=== PATIENT | female | born 1960 | race Caucasian/White ===

== ENCOUNTER 2020-03-18 13:22 | Inpatient (IN) | payer OTHER, SELFPAY ==
[2020-03-18] VITALS (7 sets, daily range): BP systolic 96–116; BP diastolic 50–65; PULSE 83–120; RESP 16–20; TEMP 36.5–37.6; O2SAT 94–97; BMI 36.6
--- NOTE | 2020-03-18 14:04 | ED.ABDPAIN ---
HPI - Abdominal Pain General Chief Complaint: Abdominal Pain <Samy Romeo MD - Last Filed: 03/18/20 14:14> Stated Complaint: DIARRHEA FEVER <Samy Romeo MD - Last Filed: 03/18/20 14:14> Time Seen by Provider: 03/18/20 13:56 <Samy Romeo MD - Last Filed: 03/18/20 14:14> Related Data Home Medications: Home Medications Medication Instructions Recorded Confirmed fexofenadine 180 mg PO DAILY 03/18/20 03/18/20 <Samy Romeo MD - Last Filed: 03/18/20 14:14> Allergies/Adverse Reactions: Allergies Allergy/AdvReac Type Severity Reaction Status Date / Time Penicillins [PENICILLINS] Allergy Unknown Rash Verified 03/18/20 15:07 <Samy Romeo MD - Last Filed: 03/18/20 14:14> Review of Systems Review of Systems Yes all other systems are reviewed and are negative <Samy Romeo MD - Last Filed: 03/18/20 14:14> Constitutional: Reports no additional constitutional complaints <Samy Romeo MD - Last Filed: 03/18/20 14:14> Eyes: Reports no additional eye complaints <Samy Romeo MD - Last Filed: 03/18/20 14:14> Reports system reviewed and no additional complaints, except as documented <Samy Romeo MD - Last Filed: 03/18/20 14:14> Cardiovascular: Reports no additional cardiovascular complaints <Samy Romeo MD - Last Filed: 03/18/20 14:14> Respiratory: Reports no additional respiratory complaints <Samy Romeo MD - Last Filed: 03/18/20 14:14> Gastrointestinal: Reports as per HPI, Reports abdominal pain ( intermittent cramps.), Denies melena, Denies bloating, Denies hematochezia and Reports nausea <Samy Romeo MD - Last Filed: 03/18/20 14:14> Genitourinary: Reports no additional female genitourinary complaints <Samy Romeo MD - Last Filed: 03/18/20 14:14> Musculoskeletal: Reports no additional musculoskeletal complaints <Samy Romeo MD - Last Filed: 03/18/20 14:14> Reports system reviewed and no additional complaints, except as documented and Reports Abnormal speech present <Samy Romeo MD - Last Filed: 03/18/20 14:14> Psychiatric: Reports no additional psychiatric complaints <Samy Romeo MD - Last Filed: 03/18/20 14:14> Allergic/Immunologic: Reports no additional allergic/immunologic complaints <Samy Romeo MD - Last Filed: 03/18/20 14:14> Physical Exam Vital Signs and I&O and Narrative: Vital Signs and I&O: Vital Signs Temp 99.6 F 03/18/20 18:50 Pulse 94 03/18/20 18:50 Resp 18 03/18/20 18:50 BP 116/51 L 03/18/20 18:50 Pulse Ox 97 03/18/20 16:50 Intake & Output 03/18/20 03/18/20 03/19/20 06:59 18:59 06:59 Intake Total 1000 / 3971.54 Balance 1000 / 3971.54 Weight 90.718 kg Intake: Intake, IV Amoun t 1000 / 3971.54 0.9 % Sodium C hloride 1,000 ml 1000 / 1000 @ 999 mls/hr I VCONT .Q1H1M LUTHER Rx#:[id number] Body Mass Index 36.6 <Samy Romeo MD - Last Filed: 03/18/20 14:14> Vital Signs and I&O: Vital Signs Temp 99.6 F 03/18/20 18:50 Pulse 94 03/18/20 18:50 Resp 18 03/18/20 18:50 BP 116/51 L 03/18/20 18:50 Pulse Ox 97 03/18/20 16:50 Intake & Output 03/18/20 03/18/20 03/19/20 06:59 18:59 06:59 Intake Total 1000 / 3971.54 Balance 1000 / 3971.54 Weight 90.718 kg Intake: Intake, IV Amoun t 1000 / 3971.54 0.9 % Sodium C hloride 1,000 ml 1000 / 1000 @ 999 mls/hr I VCONT .Q1H1M L[facility]HER Rx#:[id number] Body Mass Index 36.6 <Donis Graves DO - Last Filed: 03/18/20 20:41> Const: General: healthy appearing and comfortable <Samy Romeo MD - Last Filed: 03/18/20 14:14> Orientation/consciousness: oriented to person <Samy Romeo MD - Last Filed: 03/18/20 14:14> HENMT: Head: Yes normal to inspection <Samy Romeo MD - Last Filed: 03/18/20 14:14> Eyes: General: appearance normal, both eyes and all related structures <Samy Romeo MD - Last Filed: 03/18/20 14:14> Neck: Neck: Yes normal visual inspection <Samy Romeo MD - Last Filed: 03/18/20 14:14> Chest: Chest palpation & inspection: normal inspection of the chest <Samy Romeo MD - Last Filed: 03/18/20 14:14> Resp: Effort & Inspection: normal respiratory effort <Samy Romeo MD Last Filed: 03/18/20 14:14> Auscultation: clear to auscultation bilaterally <Samy Romeo MD - Last Filed: 03/18/20 14:14> Percussion: percussion normal <Samy Romeo MD Last Filed: 03/18/20 14:14> Cardio: Jugular venous distension: no JVD <Samy Romeo MD - Last Filed: 03/18/20 14:14> Palpation: normal PMI <Samy Romeo MD - Last Filed: 03/18/20 14:14> Rate: regular rate <Samy Romeo MD Last Filed: 03/18/20 14:14> GI: Inspection: Yes normal to inspection <Samy Romeo MD Last Filed: 03/18/20 14:14> Palpation (GI): Soft to palpation, Tenderness to palpation present (GI) ( mild tenderness in the epigastric area, no rebound tenderness, no guarding), no guarding, not rigid and hepatosplenomegaly present <Samy Romeo MD - Last Filed: 03/18/20 14:14> Percussion: Yes normal to percussion <Samy Romeo MD - Last Filed: 03/18/20 14:14> Rectal Exam - Female: deferred <Samy Romeo MD - Last Filed: 03/18/20 14:14> : General: Yes no CVA tenderness <Samy Romeo MD - Last Filed: 03/18/20 14:14> Back/Spine/Pelvis: Back: no CVA tenderness <Samy Romeo MD - Last Filed: 03/18/20 14:14> Thoracic/Lumbar Spine: thoracic and lumbar spine normal to inspection <Samy Romeo MD - Last Filed: 03/18/20 14:14> Skin: General skin exam: no rashes or lesions noted <Samy Romeo MD - Last Filed: 03/18/20 14:14> Neuro: General: oriented to person <Samy Romeo MD - Last Filed: 03/18/20 14:14> Cranial nerves: Yes CN's II-XII intact bilaterally <Samy Romeo MD - Last Filed: 03/18/20 14:14> Cognition (Neuro): normal cognition <Samy Romeo MD - Last Filed: 03/18/20 14:14> Speech: Abnormal speech present <Samy Romeo MD - Last Filed: 03/18/20 14:14> Extrem: General: Yes normal to inspection and Yes full ROM <Samy Romeo MD - Last Filed: 03/18/20 14:14> Course Course Hospital Course: I received sign-out from Dr. Davidson. At that point CT scan abdomen pelvis was still pending. Unaware if there was a source of infection. now that the CT scan results are back. With elevated white count abnormal laboratory work I now suspect and know the patient is in sepsis. I will now add lactic acid and blood cultures IV fluids and IV antibiotics and admission. I discussed this with the patient and re-examined the abdomen which shows mild tenderness lower diffuse abdomen. However patient is talking on her phone in mild distress. Patient now states went and had diarrhea which was bloody dark maroon at 17:45 I reexamine the patient for a focal exam <Samy Romeo MD - Last Filed: 03/18/20 14:14> MDM - Abdominal Pain Lab Data Result diagrams: : 03/18/20 14:26 03/18/20 14:26 <Samy Romeo MD - Last Filed: 03/18/20 14:14> Labs: Lab Results 03/18/20 03/18/20 03/18/20 Range/Units 14:26 14:26 17:48 WBC 18.8 H (4.8-10.8) X10*3/uL RBC 4.78 (4.20-5.50) X10*6/uL Hgb 15.2 (12.0-16.0) g/dl Hct 44.9 (37-47) % MCV 93.9 (80-98) fL MCH 31.8 (27.0-33.0) pg MCHC 33.9 (31.0-35.0) g/dl RDW 13.2 (11.0-16.0) % Plt Count 348 (160-400) X10*3/uL MPV 9.7 (9.4-12.3) fL Absolute Nucleated RBC 0.000 (0.0-0.012) X10*3/uL Nucleated RBC % (auto) 0.0 (0.0-0.2) /100WBC Sodium 135 (135-145) mmol/L Potassium 3.7 (3.3-5.1) mmol/l Chloride 102 (96-108) mmol/L Carbon Dioxide 23 (22-29) mmol/L Anion Gap 14 (12-20) BUN 9 (9-16) mg/dL Creatinine 0.88 (0.5-1.4) mg/dL Estim Creat Clear Calc 72.9 Estimated GFR > 60 Random Glucose 116 H (60-115) mg/dL Lactic Acid 0.6 (0.5-2.0) mmol/L Calcium 8.1 L (8.4-10.2) mg/dL Total Bilirubin 0.4 (0.0-1.0) mg/dL Direct Bilirubin 0.2 (0.0-0.5) mg/dL AST 22 (5-31) U/L ALT 24 (0-31) U/L Alkaline Phosphatase 106 (39-117) U/L Total Protein 6.5 (6.5-8.0) g/dL Albumin 3.8 (3.5-5.0) g/dL Lipase 12 (8-78) U/L <Samy oRmeo MD - Last Filed: 03/18/20 14:14> Lab Results 03/18/20 03/18/20 03/18/20 Range/Units 14:26 14:26 17:48 WBC 18.8 H (4.8-10.8) X10*3/uL RBC 4.78 (4.20-5.50) X10*6/uL Hgb 15.2 (12.0-16.0) g/dl Hct 44.9 (37-47) % MCV 93.9 (80-98) fL MCH 31.8 (27.0-33.0) pg MCHC 33.9 (31.0-35.0) g/dl RDW 13.2 (11.0-16.0) % Plt Count 348 (160-400) X10*3/uL MPV 9.7 (9.4-12.3) fL Absolute Nucleated RBC 0.000 (0.0-0.012) X10*3/uL Nucleated RBC % (auto) 0.0 (0.0-0.2) /100WBC Sodium 135 (135-145) mmol/L Potassium 3.7 (3.3-5.1) mmol/l Chloride 102 (96-108) mmol/L Carbon Dioxide 23 (22-29) mmol/L Anion Gap 14 (12-20) BUN 9 (9-16) mg/dL Creatinine 0.88 (0.5-1.4) mg/dL Estim Creat Clear Calc 72.9 Estimated GFR > 60 Random Glucose 116 H (60-115) mg/dL Lactic Acid 0.6 (0.5-2.0) mmol/L Calcium 8.1 L (8.4-10.2) mg/dL Total Bilirubin 0.4 (0.0-1.0) mg/dL Direct Bilirubin 0.2 (0.0-0.5) mg/dL AST 22 (5-31) U/L ALT 24 (0-31) U/L Alkaline Phosphatase 106 (39-117) U/L Total Protein 6.5 (6.5-8.0) g/dL Albumin 3.8 (3.5-5.0) g/dL Lipase 12 (8-78) U/L <Donis Graves DO - Last Filed: 03/18/20 20:41> Critical Care Time Critical Care Time Critical Care Time: Yes <Donis Graves DO - Last Filed: 03/18/20 20:41> Total Critical Care Time: 35 <Donis Graves DO - Last Filed: 03/18/20 20:41> Attestation: I attest multiple re-evaluations were done by me while in the emergency department for sepsis time <Donis Graves DO - Last Filed: 03/18/20 20:41> Discharge Plan Discharge Clinical Impression: Colitis, Nausea vomiting and diarrhea, Bloody stool Abdominal pain Qualifiers: Abdominal location: generalized Qualified Code(s): R10.84 - Generalized abdominal pain Sepsis Qualifiers: Sepsis type: sepsis due to unspecified organism Sepsis acute organ dysfunction status: without acute organ dysfunction Qualified Code(s): A41.9 - Sepsis, unspecified organism <Samy Romeo MD - Last Filed: 03/18/20 14:14> Patient Disposition: Admitted As Inpatient <Samy Romeo MD - Last Filed: 03/18/20 14:14> Interventions: Admission Worksheet (ED) Last Done: 03/18/20 20:33 <Samy Romeo MD - Last Filed: 03/18/20 14:14> Discharge Date/Time: 03/18/20 20:34 <Samy Romeo MD - Last Filed: 03/18/20 14:14> PMFSH Past Medical History Medical History: Medical History (Updated 03/18/20 @ 19:52 by NITA Powell) Healthy adult <Samy Romeo MD - Last Filed: 03/18/20 14:14> Surgical History: Surgical History (Updated 03/18/20 @ 19:49 by NITA Powell) S/P endometrial ablation <Samy Romeo MD - Last Filed: 03/18/20 14:14> Family History Family History: Family History (Updated 03/18/20 @ 19:48 by NITA Powell) Father CAD (coronary artery disease) Mother Dementia <Samy Romeo MD - Last Filed: 03/18/20 14:14> Social History Social History: Social History (Updated 03/18/20 @ 19:50 by NITA Powell) Alcohol intake: current Alcohol intake frequency: a few times a week Alcohol type: hard liquor Smoking Status: Current every day smoker Use of substances other than those prescribed or required for medical reasons: No Advance Directives: No Advance Directives Information Provided: No <Samy Romeo MD - Last Filed: 03/18/20 14:14>
[2020-03-18] MEDS: 0.9 % Sodium Chloride 1,000 ML 999 ML IVCONT (14:10)
[2020-03-18 14:36] LABS: Hematocrit 44.9 % (37-47); Hemoglobin 15.2 g/dl (12.0-16.0); Mean Corpuscular HGB Conc 33.9 g/dl (31.0-35.0); Mean Corpuscular Hemoglobin 31.8 pg (27.0-33.0); Mean Corpuscular Volume 93.9 fL (80-98); Mean Platelet Volume 9.7 fL (9.4-12.3); Platelet Count 348 X10*3/uL (160-400); Red Blood Count 4.78 X10*6/uL (4.20-5.50); Red Cell Distribution Width 13.2 % (11.0-16.0); White Blood Count 18.8 X10*3/uL (4.8-10.8)
[2020-03-18 15:02] LABS: Alanine Aminotransferase 24 U/L (0-31); Albumin Level 3.8 g/dL (3.5-5.0); Alkaline Phosphatase 106 U/L (39-117); Anion Gap 14 (12-20); Aspartate Amino Transferase 22 U/L (5-31); Bilirubin Direct 0.2 mg/dL (0.0-0.5); Bilirubin Total 0.4 mg/dL (0.0-1.0); Blood Urea Nitrogen 9 mg/dL (9-16); Calcium 8.1 mg/dL (8.4-10.2); Carbon Dioxide 23 mmol/L (22-29); Chloride 102 mmol/L (96-108); Creatinine Clr Calc Pharmacy 72.9; Estimated Glomerular Filt Rate > 60; Glucose Random 116 mg/dL (60-115); Lipase 12 U/L (8-78); Potassium 3.7 mmol/l (3.3-5.1); Sodium 135 mmol/L (135-145); Total Protein 6.5 g/dL (6.5-8.0)
--- NOTE | 2020-03-18 16:02 | CT_ITS ---
EXAMINATION: CT ABDOMEN AND PELVIS WITHOUT CONTRAST CLINICAL INFORMATION: Abdominal pain and leukocytosis COMPARISON: None TECHNIQUE: Multidetector volumetric imaging was performed from the superior aspect of the liver through the pubic symphysis. Sagittal and coronal reformatted images were obtained on the technologist's workstation. This CT examination was performed using dose optimization techniques as appropriate, variously including the following: *Automated exposure control *Adjustment of mA and/or kV according to patient size (this includes techniques or standardized protocols for targeted exams where dose is matched to indication/reason for exam; i.e. extremities or head) *Use of iterative reconstruction technique DLP: 713 mGy-cm FINDINGS: LUNG BASES: The visualized lung bases are unremarkable. LIVER, GALLBLADDER, AND BILIARY TREE: The liver is low in attenuation suggestive of fatty infiltration. Liver is normal in size and shape. No focal liver lesion is seen. There is a gallstone in region of the neck of the gallbladder. The gallbladder does not appear distended. There is no gallbladder wall thickening or pericholecystic fluid. There is no intra or extrahepatic biliary duct dilatation.. PANCREAS: Unremarkable. SPLEEN: Unremarkable. ADRENAL GLANDS: Unremarkable. KIDNEYS AND URETERS: The kidneys are normal in size, shape, and attenuation. No hydronephrosis, hydroureter, or calculi seen. No perinephric stranding. BLADDER: Not optimally distended and not well evaluated. GASTROINTESTINAL TRACT: There are fluid-filled loops of small and large bowel. There is mild stranding of the pericolic fat and prominent vascularity questionable for mild colitis, particularly involving the distal transverse colon, splenic flexure and left colon. Small and large bowel is otherwise unremarkable. The appendix is not identified. ABDOMINAL WALL: No significant hernia is appreciated. LYMPH NODES: Normal. VASCULAR: Unremarkable. PELVIC VISCERA: Unremarkable. OSSEOUS STRUCTURES: There is degenerative disc disease at L5-S1. IMPRESSION: Gallstone in the region of the neck of the gallbladder. No CT evidence of cholecystitis. Fatty liver. Question mild colitis.
[2020-03-18] MEDS: Loperamide HCl 2 MG CAPSULE PO (16:54)
[2020-03-18] MEDS: levoFLOXacin/D5W 750 MG/150 ML PIGGYBACK 100 MG IV (17:57)
[2020-03-18] MEDS: 0.9 % Sodium Chloride 2,721.54 ML 2721.54 ML IVCONT (17:59)
--- NOTE | 2020-03-18 18:08 | PC.NURSE ---
PT UPRIGHT IN BED, RR EVEN UNLABORED, SKIN WPD, AOX3. PT OFFERS NO NEW COMPLAINTS, STS ABD DISCOMFORT PERSITS INTERMITTENTLY BUT IS TOLERABLE. PT DRINKING GINGERALE W.OUT DIFFICULTY. PT AWAITING ADMIT, AWARE/AGREEABLE TO PLAN OF CARE.
--- NOTE | 2020-03-18 18:12 | PC.NURSE ---
SEPSIS FLUIDS OF 30CC/KG ORDERED OVER 1HR RUN TIME, V/O PER DR CERVANTES TO ADMIN WO AT 1L/HR
[2020-03-18 18:27] LABS: Lactic Acid 0.6 mmol/L (0.5-2.0)
[2020-03-18] MEDS: metroNIDAZOLE/NS 500 MG/100 ML PIGGYBACK 100 MG IV (19:31)
--- NOTE | 2020-03-18 19:36 | PM.IMHP ---
History of Present Illness Date of Service: 03/18/20 <NITA Powell - Last Filed: 03/18/20 20:08> Chief Complaint: diarrhea <NITA Powell - Last Filed: 03/18/20 20:08> this is a 59-year-old female who presents to the emergency department with complaints of diarrhea. Patient reports for the past 2 days she has had numerous episodes of diarrhea. This has been associated with crampy lower abdominal pain. She reports a fever 102 at home for which she took a dose of ibuprofen. On arrival in the emergency department her temperature was 99 degrees. Lab work revealed leukocytosis of 18.8. she was also noted to be tachycardic. She underwent a CAT scan of the abdomen which showed mild colitis. In the emergency department she had 1 episode blood mixed with diarrhea. She denies any recent antibiotic use or recent travel. She ate a steak and cheese [employer] grinder on Thursday evening. she denies any sick contacts. <NITA Powell - Last Filed: 03/18/20 20:08> Review of Systems Review of Systems: Yes all other systems are reviewed and are negative <NITA Powell - Last Filed: 03/18/20 20:08> Constitutional: Constitutional: Denies chills and Reports fever(s) <NITA Powell - Last Filed: 03/18/20 20:08> Cardiovascular: Cardiovascular: Denies chest pain <NITA Powell - Last Filed: 03/18/20 20:08> Respiratory: Respiratory: Denies cough <NITA Powell Last Filed: 03/18/20 20:08> Gastrointestinal: Gastrointestinal: Reports abdominal pain, Reports diarrhea and Reports nausea <NITA Powell Last Filed: 03/18/20 20:08> Neurologic: Reports system reviewed and no additional complaints, except as documented and Reports Abnormal speech present <NITA Powell Last Filed: 03/18/20 20:08> [facility] Medical History: Medical History (Updated 03/18/20 @ 19:52 by NITA Powell) Healthy adult <NITA Powell Last Filed: 03/18/20 20:08> Functional capacity: independent ambulation <NITA Powell - Last Filed: 03/18/20 20:08> Family History: Family History (Updated 03/18/20 @ 19:48 by NITA Powell) Father CAD (coronary artery disease) Mother Dementia <NITA Powell - Last Filed: 03/18/20 20:08> Surgical History: Surgical History (Updated 03/18/20 @ 19:49 by NITA Powell) S/P endometrial ablation <NITA Powell - Last Filed: 03/18/20 20:08> Social History: Social History (Updated 03/18/20 @ 19:50 by NITA Powell) Alcohol intake: current Alcohol intake frequency: a few times a week Alcohol type: hard liquor Smoking Status: Current every day smoker Use of substances other than those prescribed or required for medical reasons: No Advance Directives: No Advance Directives Information Provided: No <NITA Powell - Last Filed: 03/18/20 20:08> Meds Allergies/Adverse reactions: Allergies Allergy/AdvReac Type Severity Reaction Status Date / Time Penicillins [PENICILLINS] Allergy Unknown Rash Verified 03/18/20 15:07 <NITA Powell - Last Filed: 03/18/20 20:08> Home medications: Home Medications Medication Instructions Recorded Confirmed Type fexofenadine 180 mg PO DAILY 03/18/20 03/18/20 History <NITA Powell - Last Filed: 03/18/20 20:08> Physical Exam Vital Signs and Narrative: Vital Signs: Last Vital Signs Temp 99.6 F 03/18/20 18:50 Pulse 94 03/18/20 18:50 Resp 18 03/18/20 18:50 BP 116/51 L 03/18/20 18:50 Pulse Ox 97 03/18/20 16:50 Body Mass Index 36.6 <NITA Powell - Last Filed: 03/18/20 20:08> Const: Nutritional Appearance: well nourished <NITA Powell - Last Filed: 03/18/20 20:08> Orientation/consciousness: patient oriented x3 <NITA Powell Last Filed: 03/18/20 20:08> HENMT: Head: Yes normocephalic and Yes atraumatic <NITA Powell - Last Filed: 03/18/20 20:08> Eyes: Sclerae: sclerae normal <NITA Powell - Last Filed: 03/18/20 20:08> Chest: Chest palpation & inspection: normal inspection of the chest <NITA Powell - Last Filed: 03/18/20 20:08> Resp: Effort & Inspection: normal respiratory effort and no respiratory distress <NITA Powell - Last Filed: 03/18/20 20:08> Auscultation: clear to auscultation bilaterally <NITA Powell - Last Filed: 03/18/20 20:08> Cardio: Rate: regular rate <NITA Powell - Last Filed: 03/18/20 20:08> Rhythm: regular rhythm <NITA Powell - Last Filed: 03/18/20 20:08> GI: Palpation (GI): Soft to palpation, Tenderness to palpation present (GI) in the LLQ and in the RLQ (mild) and no guarding <NITA Powell - Last Filed: 03/18/20 20:08> Skin: General skin exam: no rashes or lesions noted <NITA Powell - Last Filed: 03/18/20 20:08> Neuro: General: patient oriented x3 <NITA Powell - Last Filed: 03/18/20 20:08> Cranial nerves: Yes CN's II-XII intact bilaterally and Yes Bilaterally intact EOM present <NITA Powell - Last Filed: 03/18/20 20:08> Speech: Abnormal speech present <NITA Powell Last Filed: 03/18/20 20:08> Extrem: General: Yes normal to inspection <NITA Powell - Last Filed: 03/18/20 20:08> Results Labs Labs: Laboratory Tests 03/18/20 03/18/20 03/18/20 14:26 14:26 17:48 WBC 18.8 H RBC 4.78 Hgb 15.2 Hct 44.9 MCV 93.9 MCH 31.8 MCHC 33.9 RDW 13.2 Plt Count 348 MPV 9.7 Absolute Nucleated RBC 0.000 Nucleated RBC % (auto) 0.0 Sodium 135 Potassium 3.7 Chloride 102 Carbon Dioxide 23 Anion Gap 14 BUN 9 Creatinine 0.88 Estim Creat Clear Calc 72.9 Estimated GFR > 60 Random Glucose 116 H Lactic Acid 0.6 Calcium 8.1 L Total Bilirubin 0.4 Direct Bilirubin 0.2 AST 22 ALT 24 Alkaline Phosphatase 106 Total Protein 6.5 Albumin 3.8 Lipase 12 <NITA Powell - Last Filed: 03/18/20 20:08> Imaging CT scan - abdomen: Radiologist's impression: Gallstone in the region of the neck of the gallbladder. No CT evidence of cholecystitis. Fatty liver. <NITA Powell - Last Filed: 03/18/20 20:08> Assessment and Plan (1) Sepsis: Qualifiers: Sepsis acute organ dysfunction status: without acute organ dysfunction Sepsis type: sepsis due to unspecified organism Qualified Code(s): A41.9 - Sepsis, unspecified organism <NITA Powell - Last Filed: 03/18/20 20:08> Status: Acute <NITA Powell - Last Filed: 03/18/20 20:08> (2) Colitis: Status: Acute <NITA Powell - Last Filed: 03/18/20 20:08> this is in a 59-year-old female who presents to the emergency department with diarrhea found to have colitis sepsis patient meets sepsis criteria with leukocytosis, tachycardia related to sepsis lactic acid normal, no evidence of end-organ damage sepsis focused exam completed received IV fluid in the ED colitis clear liquid diet IV fluid IV Levaquin and Flagyl pain control stool studies 1 episode of blood mixed with stool, will follow CBC cholelithiasis gallstones seen near neck of gallbladder on CT no RUQ pain LFTs within normal limits no further workup at this time DVT prophylaxis - mechanical devices code status- full code this case was discussed with Dr. rooney <NITA Powell - Last Filed: 03/18/20 20:08>
--- NOTE | 2020-03-18 19:52 | PC.NURSE ---
[facility] CALLED FOR REPORT
--- NOTE | 2020-03-18 20:08 | PC.NURSE ---
REPORT GIVEN TO MED-RESIDENT MANAGER
[2020-03-18] MEDS: 0.9 % Sodium Chloride 1,000 ML 100 ML IVCONT (22:02)
[2020-03-19] MEDS: metroNIDAZOLE/NS 500 MG/100 ML PIGGYBACK 100 MG IV ×3 (02:44→19:23)
[2020-03-19 06:29] LABS: MANUAL DIFF FLAG NO
[2020-03-19 06:42] LABS: Basophils Percent Auto 0.2 % (0-2); Eosinophils Absolute Auto 0.1 X10*3/uL (0.0-0.4); Eosinophils Percent Auto 0.9 % (0-4); Hematocrit 37.7 % (37-47); Hemoglobin 12.3 g/dl (12.0-16.0); Imm Gran Abs Auto 0.03 X10*3/uL (0.00-0.03); Imm Gran Pct Auto 0.2 % (0.0-0.4); Lymphocytes Absolute Auto 1.2 X10*3/uL (1.2-4.9); Lymphocytes Percent Auto 9.3 % (20-40); Mean Corpuscular HGB Conc 32.6 g/dl (31.0-35.0); Mean Corpuscular Hemoglobin 30.7 pg (27.0-33.0); Mean Platelet Volume 9.7 fL (9.4-12.3); Monocytes Percent Auto 7.5 % (2-11); Neutrophils Absolute Auto 10.4 X10*3/uL (2.0-8.3); Neutrophils Percent Auto 81.9 % (45-73); Platelet Count 274 X10*3/uL (160-400); Red Blood Count 4.01 X10*6/uL (4.20-5.50); Red Cell Distribution Width 13.2 % (11.0-16.0); White Blood Count 12.8 X10*3/uL (4.8-10.8)
[2020-03-19] MEDS: Morphine Sulfate 4 MG/ML CARTRIDGE 2 MG IVPUSH (06:47)
[2020-03-19 07:50] LABS: Anion Gap 11 (12-20); Blood Urea Nitrogen 6 mg/dL (9-16); Calcium 7.2 mg/dL (8.4-10.2); Carbon Dioxide 21 mmol/L (22-29); Chloride 113 mmol/L (96-108); Creatinine Clr Calc Pharmacy 95.8; Estimated Glomerular Filt Rate > 60; Glucose Random 72 mg/dL (60-115); Potassium 3.5 mmol/l (3.3-5.1); Sodium 141 mmol/L (135-145)
[2020-03-19 08:00] VITALS: BP 111/54; PULSE 81; RESP 19; TEMP 36.1; O2SAT 95
[2020-03-19] MEDS: 0.9 % Sodium Chloride 1,000 ML 100 ML IVCONT ×2 (08:27→19:19)
--- NOTE | 2020-03-19 10:07 | P.PNIM_ITS ---
Subjective Subjective Date of Service: 03/19/20 Interval History: still with abd pain, not hungry yet Cardiovascular Cardiovascular: Reports no additional cardiovascular complaints Respiratory Respiratory: Reports no additional respiratory complaints Physical Exam Vital Signs and I&O and Narrative: Vital Signs and I&O: Vital Signs Temp 97 F 03/19/20 08:00 Pulse 81 03/19/20 08:00 Resp 19 03/19/20 08:00 BP 111/54 L 03/19/20 08:00 Pulse Ox 95 03/19/20 08:00 Intake & Output 03/18/20 03/19/20 03/19/20 18:59 06:59 18:59 Intake Total 1000 / 4251.54 3251.54 / 4251.54 1240 / 1240 Balance 1000 / 4251.54 3251.54 / 4251.54 1240 / 1240 Weight 90.718 kg Intake: Intake, Oral [place] unt 180 / 180 240 / 240 Intake, IV Amoun t 1000 / 4071.54 3071.54 / 4071.54 1000 / 1000 levoFLOXacin/D 5W 750 mg In 150 150 / 150 ml @ 100 mls/h r IV ONCE ONE Rx# :[id number] metroNIDAZOLE/ NS 500 mg In 100 200 / 200 ml @ 100 mls/h r IV Q8H [facility] Rx#: [id number] 0.9 % Sodium C hloride 1,000 ml 1000 / 3721.54 2721.54 / 3721.54 1000 / 1000 @ 100 mls/hr I VCONT .Q10H [facility] Rx#:[id number] Other: Meal Refused No NPO No Breakfast % Eate n 100% Number of Incont inent Voids 1 Body Mass Index 36.6 General: AO X 3, no acute distress Resp: CTA bilateral CVS: S1,S2,RRR GI: soft, LLQ tenderness, non distended Neuro: motor grossly intact Psych: appropriate affect Objective Data Current Medications Generic Name Dose Route Start Last Admin Trade Name Freq PRN Reason Stop Dose Admin Acetaminophen 650 mg 03/18/20 21:08 Acetaminophen 650 Mg Supp.Rect TX Q6H PRN Pain, Mild (Pain Scale 1-3) Sodium Chloride 1,000 mls @ 100 mls/hr 03/18/20 21:08 03/19/20 08:27 Ns IVCONT 100 mls/hr .Q10H [facility] Administration Metronidazole 500 mg in 100 mls @ 100 mls/hr 03/19/20 02:00 03/19/20 04:32 Flagyl IV Infused Q8H [facility] Infusion Levofloxacin 500 mg in 100 mls @ 100 mls/hr 03/19/20 17:00 Levaquin IV Q24H [facility] Morphine Sulfate 2 mg 03/18/20 21:08 03/19/20 06:47 Morphine Sulfate 4 Mg/Ml Cartridge IVPUSH 2 mg Q4H PRN Administration Pain, Severe (Pain Scale 7-10) Ondansetron HCl 4 mg 03/18/20 21:08 Ondansetron Hcl 4 Mg/2 Ml Vial IVPUSH Q8H PRN Nausea and Vomiting Sodium Chloride 2 ml 03/19/20 00:00 03/19/20 08:04 0.9 % Sodium Chloride Flush 3 Ml Syringe IVFLUSH Not Given QSHIFT [facility] Labs CBC & Chem 7: 03/19/20 06:08 03/19/20 06:08 Labs: Laboratory Results - last 24 hr 03/18/20 03/18/20 03/18/20 14:26 14:26 17:48 MCV 93.9 MCH 31.8 MCHC 33.9 RDW 13.2 Plt Count 348 MPV 9.7 Immature Gran % (Auto) Neut % (Auto) Lymph % (Auto) [place] % (Auto) Eos % (Auto) Baso % (Auto) Neut # (Auto) Lymph # (Auto) [place] # (Auto) Eos # (Auto) Baso # (Auto) Abs Immat Gran (auto) Absolute Nucleated RBC 0.000 Nucleated RBC % (auto) 0.0 Anion Gap 14 Estim Creat Clear Calc 72.9 Estimated GFR > 60 Random Glucose 116 H Lactic Acid 0.6 Calcium 8.1 L Total Bilirubin 0.4 Direct Bilirubin 0.2 AST 22 ALT 24 Alkaline Phosphatase 106 Total Protein 6.5 Albumin 3.8 Lipase 12 03/19/20 03/19/20 06:08 06:08 MCV 94.0 MCH 30.7 MCHC 32.6 RDW 13.2 Plt Count 274 MPV 9.7 Immature Gran % (Auto) 0.2 Neut % (Auto) 81.9 H Lymph % (Auto) 9.3 L [place] % (Auto) 7.5 Eos % (Auto) 0.9 Baso % (Auto) 0.2 Neut # (Auto) 10.4 H Lymph # (Auto) 1.2 [place] # (Auto) 1.0 Eos # (Auto) 0.1 Baso # (Auto) 0.0 Abs Immat Gran (auto) 0.03 Absolute Nucleated RBC 0.000 Nucleated RBC % (auto) 0.0 Anion Gap 11 L Estim Creat Clear Calc 95.8 Estimated GFR > 60 Random Glucose 72 D Lactic Acid Calcium 7.2 L Total Bilirubin Direct Bilirubin AST ALT Alkaline Phosphatase Total Protein Albumin Lipase Assessment and Plan (1) Sepsis: Status: Acute (2) Colitis: Status: Acute Assessment and Plan: 59-year-old female who presented to the emergency department with diarrhea found to have colitis sepsis poa due to colitis follow up cdif and culture levaquin, flagyl liquid diet, advance as toelrated cholelithiasis gallstones seen near neck of gallbladder on CT no RUQ pain LFTs within normal limits no further workup at this time DVT prophylaxis - mechanical devices code status- full code
[2020-03-19 11:46] VITALS: BP 105/63; PULSE 77; RESP 19; TEMP 36.4; O2SAT 95
--- NOTE | 2020-03-19 12:02 | MHC.CM.PN ---
nurse life care planner note electronic medical record reviewedalong with case discussed on multiple disciplainry runds met with patient explaineed the role of the nurse life care planner toooooooo her in the transitin from hospitla to home , educated about the importance of having a health care proxy. patient next of jin and person to notify is her daughter prosper beth [phone]. she is emplo=yed ful time and will need a return to work note. she does not anticipate any need for any servcies at discharge discharge plan home with no servcies ' confirmed pcp dr sparks at [facility], [place], patient to call for follow up transportation family
[2020-03-19 15:38] VITALS: BMI 36.6
[2020-03-19 16:00] VITALS: BP 106/53; PULSE 76; RESP 20; TEMP 36.6; O2SAT 97
[2020-03-19] MEDS: levoFLOXacin/D5W 500 MG/100 ML PIGGYBACK 100 MG IV (18:20)
[2020-03-19 23:48] VITALS: BP 109/57; PULSE 73; RESP 16; TEMP 36.7; O2SAT 99
--- NOTE | 2020-03-20 01:10 | PC.NURSE ---
PATIENT RECEIVED PRN MORPHINE FOR 8/10 PAIN IN LEFT FOOT. MORPHINE WAS INEFFECTIVE. PRN OXYCODONE WAS GIVEN PO, AND ALSO INEFFECTIVE AT RELIEVING PAIN. PATIENT WAS EXHIBITING 10/10 PAIN IN LEFT FOOT, UNCONTROLLABLE SHAKING, NAUSEA, AND HEADACHE. REQUESTED ORDER FOR ADDITIONAL PAIN MEDS FROM HOSPITALIST. 1MG DILAUDID GIVEN IV WITH POSITIVE EFFECTS. BLEEDING WAS NOTED THROUGH THE ADI BANDAGE, AT THE UNDERSIDE OF THE LEFT FOOT. MESSAGE WAS SENT TO CUSTOMER EXPERIENCE PROFESSIONAL SURGEON TO UPDATE. NO NEW ORDERS RECEIVED. BLEEDING SEEMED TO HAVE STOPPED AND WAS LATER NOTED TO APPEAR DRIED. CONTINUE TO MONITOR FOR CHANGES. PATIENT REFUSED SUBCUTANEOUS HEPARIN, COVERING PHYSICIAN NOTIFIED. DOCUMENTED ON AUG
[2020-03-20] MEDS: metroNIDAZOLE/NS 500 MG/100 ML PIGGYBACK 100 MG IV ×3 (01:17→17:18)
[2020-03-20 04:16] VITALS: BP 111/63; RESP 19; TEMP 36.8; O2SAT 94
[2020-03-20 06:50] LABS: Basophils Percent Auto 0.3 % (0-2); Eosinophils Absolute Auto 0.3 X10*3/uL (0.0-0.4); Eosinophils Percent Auto 3.5 % (0-4); Hematocrit 35.5 % (37-47); Imm Gran Abs Auto 0.04 X10*3/uL (0.00-0.03); Imm Gran Pct Auto 0.4 % (0.0-0.4); Lymphocytes Absolute Auto 1.6 X10*3/uL (1.2-4.9); Lymphocytes Percent Auto 15.8 % (20-40); MANUAL DIFF FLAG NO; Mean Corpuscular HGB Conc 33.8 g/dl (31.0-35.0); Mean Corpuscular Hemoglobin 31.4 pg (27.0-33.0); Mean Corpuscular Volume 92.9 fL (80-98); Mean Platelet Volume 9.9 fL (9.4-12.3); Monocytes Percent Auto 10.4 % (2-11); Neutrophils Absolute Auto 6.8 X10*3/uL (2.0-8.3); Neutrophils Percent Auto 69.6 % (45-73); Platelet Count 275 X10*3/uL (160-400); Red Blood Count 3.82 X10*6/uL (4.20-5.50); White Blood Count 9.8 X10*3/uL (4.8-10.8)
[2020-03-20 07:37] LABS: Anion Gap 9 (12-20); Blood Urea Nitrogen 4 mg/dL (9-16); Calcium 7.8 mg/dL (8.4-10.2); Carbon Dioxide 24 mmol/L (22-29); Chloride 113 mmol/L (96-108); Creatinine Clr Calc Pharmacy 103.5; Estimated Glomerular Filt Rate > 60; Glucose Fasting 83 mg/dL (60-99); Potassium 3.4 mmol/l (3.3-5.1); Sodium 143 mmol/L (135-145)
[2020-03-20] MEDS: 0.9 % Sodium Chloride 1,000 ML 100 ML IVCONT ×2 (07:37→20:27)
[2020-03-20 08:00] VITALS: BP 118/58; PULSE 64; RESP 18; TEMP 36.4; O2SAT 95
--- NOTE | 2020-03-20 14:50 | HO.PM.IMPN ---
Subjective Subjective Date of Service: 03/20/20 Interval History: the patient was seen and evaluated this morning Complaining of abdominal pain which has improved significantly, diarrhea next Lyme denies any fever or chills Tolerating diet well Review of Systems Review of Systems: Yes all other systems are reviewed and are negative Gastrointestinal Gastrointestinal: Reports GI cramping and Reports diarrhea Physical Exam Vital Signs and I&O and Narrative: Vital Signs and I&O: Vital Signs Temp 97.5 F 03/20/20 08:00 Pulse 64 03/20/20 08:00 Resp 18 03/20/20 08:00 BP 118/58 L 03/20/20 08:00 Pulse Ox 95 03/20/20 08:00 Intake & Output 03/19/20 03/20/20 03/20/20 18:59 06:59 18:59 Intake Total 1700 / 4060 2360 / 4060 860 / 860 Output Total 403 / 403 Balance 1700 / 3657 1957 / 3657 860 / 860 Urine Output (Aver age ml/kg/hr) 0.37 0.37 Weight 90.7 kg Intake: Intake, Oral [place] unt 600 / 660 60 / 660 760 / 760 Intake, IV Amoun t 1100 / 3400 2300 / 3400 100 / 100 levoFLOXacin/D 5W 500 mg In 100 100 / 100 ml @ 100 mls/h r IV Q24H [facility] Rx# :[id number] metroNIDAZOLE/ NS 500 mg In 100 100 / 300 200 / 300 100 / 100 ml @ 100 mls/h r IV Q8H [facility] Rx#: [id number] 0.9 % Sodium C hloride 1,000 ml 1000 / 3000 2000 / 3000 @ 100 mls/hr I VCONT .Q10H [facility] Rx#:[id number] Output: Output, Urine Am ount 403 / 403 Other: Meal Refused No NPO No Breakfast % Eate n 100% 75% Lunch % Eaten 100% Number of Unmeas ured Voids 4 Urine Urinal Urine Color Yellow Body Mass Index 36.6 Const: General: cooperative, healthy appearing and comfortable Orientation/consciousness: oriented to person and oriented to place Neck: Neck: Yes normal visual inspection and Yes full ROM Chest: Chest palpation & inspection: normal inspection of the chest and normal palpation of entire chest wall Resp: Effort & Inspection: normal respiratory effort Auscultation: clear to auscultation bilaterally Cardio: Jugular venous distension: no JVD Heart sounds: S1 normal heart sound present and S2 normal heart sound present GI: Inspection: Yes normal to inspection Palpation (GI): Soft to palpation Percussion: Yes normal to percussion Neuro: General: oriented to person and oriented to place Objective Data Current Medications Generic Name Dose Route Start Last Admin Trade Name Freq PRN Reason Stop Dose Admin Acetaminophen 650 mg 03/18/20 21:08 Acetaminophen 650 Mg Supp.Rect IN Q6H PRN Pain, Mild (Pain Scale 1-3) Sodium Chloride 1,000 mls @ 100 mls/hr 03/18/20 21:08 03/20/20 07:37 Ns IVCONT 100 mls/hr .Q10H [facility] Administration Metronidazole 500 mg in 100 mls @ 100 mls/hr 03/19/20 02:00 03/20/20 10:16 Flagyl IV Infused Q8H [facility] Infusion Levofloxacin 500 mg in 100 mls @ 100 mls/hr 03/19/20 17:00 03/19/20 20:00 Levaquin IV Infused Q24H [facility] Infusion Morphine Sulfate 2 mg 03/18/20 21:08 03/19/20 06:47 Morphine Sulfate 4 Mg/Ml Cartridge IVPUSH 2 mg Q4H PRN Administration Pain, Severe (Pain Scale 7-10) Ondansetron HCl 4 mg 03/18/20 21:08 Ondansetron Hcl 4 Mg/2 Ml Vial IVPUSH Q8H PRN Nausea and Vomiting Sodium Chloride 2 ml 03/19/20 00:00 03/20/20 07:34 0.9 % Sodium Chloride Flush 3 Ml Syringe IVFLUSH Not Given QSHIFT [facility] Labs CBC & Chem 7: 03/20/20 06:12 03/20/20 06:12 Labs: Laboratory Results - last 24 hr 03/20/20 03/20/20 06:12 06:12 MCV 92.9 MCH 31.4 MCHC 33.8 RDW 13.0 Plt Count 275 MPV 9.9 Immature Gran % (Auto) 0.4 Neut % (Auto) 69.6 Lymph % (Auto) 15.8 L [place] % (Auto) 10.4 Eos % (Auto) 3.5 Baso % (Auto) 0.3 Neut # (Auto) 6.8 Lymph # (Auto) 1.6 [place] # (Auto) 1.0 Eos # (Auto) 0.3 Baso # (Auto) 0.0 Abs Immat Gran (auto) 0.04 H Absolute Nucleated RBC 0.000 Nucleated RBC % (auto) 0.0 Anion Gap 9 L Estim Creat Clear Calc 103.5 Estimated GFR > 60 Fasting Glucose 83 Calcium 7.8 L Microbiology Microbiology Results: Microbiology 03/18/20 17:54 Blood - Venous Blood Culture - Preliminary No growth after 24 hours. 03/18/20 17:48 Blood - Venous Blood Culture - Preliminary No growth after 24 hours. Quality VTE Deep Vein Thrombosis/Pulmonary Embolism Present on Admission: No VTE Risk Level: Low Is this test being ordered to rule out VTE?: No Assessment and Plan (1) Colitis: Status: Acute (2) Abdominal pain: Status: Acute Assessment and Plan: A 59-year-old female who presented to the emergency department with diarrhea found to have colitis sepsis, resolved Colitis improving Negative cdif and culture continue levaquin, flagyl advanced diet to full liquid cholelithiasis gallstones seen near neck of gallbladder on CT no RUQ pain LFTs within normal limits no further workup at this time DVT prophylaxis - mechanical devices code status- full code
[2020-03-20 16:00] VITALS: BP 121/59; PULSE 71; TEMP 36.3; O2SAT 96
[2020-03-20] MEDS: levoFLOXacin/D5W 500 MG/100 ML PIGGYBACK 100 MG IV (16:21)
[2020-03-20] MEDS: 0.9 % Sodium Chloride Flush 3 ML SYRINGE 2 ML IVFLUSH (20:19)
[2020-03-21] VITALS: BP 106/60; PULSE 73; RESP 16; TEMP 37.2; O2SAT 94
[2020-03-21] MEDS: metroNIDAZOLE/NS 500 MG/100 ML PIGGYBACK 100 MG IV ×2 (01:56→09:19)
[2020-03-21] MEDS: 0.9 % Sodium Chloride 1,000 ML 100 ML IVCONT (06:30)
[2020-03-21 06:37] LABS: MANUAL DIFF FLAG NO
[2020-03-21 06:45] LABS: Basophils Percent Auto 0.2 % (0-2); Eosinophils Absolute Auto 0.2 X10*3/uL (0.0-0.4); Eosinophils Percent Auto 2.1 % (0-4); Hemoglobin 11.9 g/dl (12.0-16.0); Imm Gran Abs Auto 0.05 X10*3/uL (0.00-0.03); Imm Gran Pct Auto 0.4 % (0.0-0.4); Lymphocytes Absolute Auto 1.7 X10*3/uL (1.2-4.9); Lymphocytes Percent Auto 15.2 % (20-40); Mean Corpuscular Hemoglobin 31.6 pg (27.0-33.0); Mean Corpuscular Volume 92.8 fL (80-98); Mean Platelet Volume 9.8 fL (9.4-12.3); Monocytes Percent Auto 9.3 % (2-11); Neutrophils Absolute Auto 8.1 X10*3/uL (2.0-8.3); Neutrophils Percent Auto 72.8 % (45-73); Platelet Count 294 X10*3/uL (160-400); Red Blood Count 3.77 X10*6/uL (4.20-5.50); Red Cell Distribution Width 12.9 % (11.0-16.0); White Blood Count 11.1 X10*3/uL (4.8-10.8)
[2020-03-21 07:21] LABS: Anion Gap 12 (12-20); Blood Urea Nitrogen 4 mg/dL (9-16); Calcium 7.8 mg/dL (8.4-10.2); Carbon Dioxide 24 mmol/L (22-29); Chloride 109 mmol/L (96-108); Creatinine Clr Calc Pharmacy 98.8; Estimated Glomerular Filt Rate > 60; Glucose Random 78 mg/dL (60-115); Potassium 3.5 mmol/l (3.3-5.1); Sodium 141 mmol/L (135-145)
[2020-03-21 07:54] VITALS: BP 117/58; PULSE 56; RESP 18; TEMP 36.5; O2SAT 95
--- NOTE | 2020-03-21 09:17 | MHC.CM.PN ---
dc plan remains the same at this time. pt to return home no svcs. family to provide transport. cm to cont. to follow.
--- NOTE | 2020-03-21 12:23 | P.DS_ITS ---
DS: Providers Provider Date of admission: 03/18/20 19:29 Primary care physician: Unknown Physician DS: Diagnosis Discharge Diagnosis (1) Colitis: Status: Acute (2) Abdominal pain: Status: Acute DS: Summary Time Spent with Patient Time attestation: admission note HPI. 59 y/o female with no pertinent PMHX who presented from home due to diarrhea and abdominal pain since yesterday. Patient denies any chest pain, SOB, nausea, vomiting or any episodes of fever while at home. On presentation patient met sepsis criteria. CT abdomen shows questionable evidence of colitis. Patient was given per ED one dose of Levaquin and flagyl. Decision for admission given. Patient evaluated at the bedside, laying down in bed in no acute distress. ROS as above otherwise negative. Physical exam negative for any tenderness, distention or masses on palpation. The patient was admitted to the hospital for evaluation of abdominal pain. CT scan of the abdomen was concerning for possible colitis. The patient was treated with Levaquin and Flagyl with good response as she was able to tolerate diet well. She did not spike any fever during the hospital stay and her blood cultures were negative. To discharge home to finish total of 1 week of Levaquin and Flagyl Advanced diet as tolerated To follow-up with PCP as outpatient Time spent: Less than 30 minutes Quality: VTE Is this test being ordered to rule out VTE?: No Deep Vein Thrombosis/Pulmonary Embolism Present on Admission: No Physical Exam Vital Signs and I&O and Narrative: Vital Signs and I&O: Vital Signs Temp 97.7 F 03/21/20 07:54 Pulse 56 03/21/20 07:54 Resp 18 03/21/20 07:54 BP 117/58 L 03/21/20 07:54 Pulse Ox 95 03/21/20 07:54 Intake & Output 03/20/20 03/21/20 03/21/20 18:59 06:59 18:59 Intake Total 2760 / 4000 1240 / 4000 541.666 / 541.666 Output Total 5 / 305 300 / 305 Balance 2755 / 3695 940 / 3695 541.666 / 541.666 Urine Output (Aver age ml/kg/hr) 0.00 0.28 0.28 Intake: Intake, Oral [place] unt 1480 / 1600 120 / 1600 240 / 240 Intake, IV Amoun t 1280 / 2400 1120 / 2400 301.666 / 301.666 levoFLOXacin/D 5W 500 mg In 100 100 / 100 ml @ 100 mls/h r IV Q24H [facility] Rx# :[id number] metroNIDAZOLE/ NS 500 mg In 100 200 / 300 100 / 300 98.333 / 98.333 ml @ 100 mls/h r IV Q8H [facility] Rx#: [id number] 0.9 % Sodium C hloride 1,000 ml 980 / 2000 1020 / 2000 203.333 / 203.333 @ 100 mls/hr I VCONT .Q10H [facility] Rx#:[id number] Output: Output, Urine Am ount 5 / 305 300 / 305 Other: Meal Refused No NPO No No Breakfast % Eate n 75% 75% Lunch % Eaten 100% Number of Unmeas ured Voids 1 Number of Bowel Movements 1 Urine Bathroom Bathroom Urine Color Yellow Rachel Last Bowel Movem ent 03/20/20 Stool Bathroom Stool Color Green Stool Consistenc y Liquid Body Mass Index 36.6 Const: General: cooperative and healthy appearing Orientation/conscio usness: oriented to person and oriented to place Neck: Neck: Yes normal visual inspection and Yes full ROM Resp: Effort & Inspection: normal respiratory effort Auscultation: clear to auscultation bilaterally Cardio: Jugular venous distension: no JVD Heart sounds: S1 normal heart sound present and S2 normal heart sound present GI: Inspection: Yes normal to inspection Percussion: Yes normal to percussion Auscultation: normal bowel sounds Neuro: General: oriented to person and oriented to place Extrem: General: Yes normal to inspection and Yes full ROM DS: Data Data Completed and Pending Labs on day of discharge: Labs from last 24 hours 03/21/20 03/21/20 06:15 06:15 WBC 11.1 H RBC 3.77 L Hgb 11.9 L Hct 35.0 L MCV 92.8 MCH 31.6 MCHC 34.0 RDW 12.9 Plt Count 294 MPV 9.8 Immature Gran % (Auto) 0.4 Neut % (Auto) 72.8 Lymph % (Auto) 15.2 L [place] % (Auto) 9.3 Eos % (Auto) 2.1 Baso % (Auto) 0.2 Neut # (Auto) 8.1 Lymph # (Auto) 1.7 [place] # (Auto) 1.0 Eos # (Auto) 0.2 Baso # (Auto) 0.0 Abs Immat Gran (auto) 0.05 H Absolute Nucleated RBC 0.000 Nucleated RBC % (auto) 0.0 Sodium 141 Potassium 3.5 Chloride 109 H Carbon Dioxide 24 Anion Gap 12 BUN 4 L Creatinine 0.65 Estim Creat Clear Calc 98.8 Estimated GFR > 60 Random Glucose 78 Calcium 7.8 L Preliminary micro results at discharge 03/18/20 17:54 Blood Culture - Preliminary Blood - Venous No growth after 48 hours. 03/18/20 17:48 Blood Culture - Preliminary Blood - Venous No growth after 48 hours. Discharge Plan Discharge Anticipated Discharge Date/Time: 03/21/20 11:39 Patient Disposition: Home, Self-Care Referrals: Physician,Unknown [Primary Care Provider] - Discharge Medications: New levofloxacin 500 mg tablet 500 mg PO DAILY Qty: 4 RF: 0 metronidazole [Flagyl] 250 mg tablet 250 mg PO Q8H Qty: 12 RF: 0 ondansetron HCl [Zofran] 4 mg tablet 4 mg PO Q8H PRN (Reason: nausea and vomiting) Qty: 14 RF: 0 Continued fexofenadine 180 mg Tablet 180 mg PO DAILY RF: 0 Discharge Orders: Discharge Order (Routine); Ordered 03/21/20 Ordered By: Scarlett Tobias Diet: advance to your usual diet and low fat, low cholesterol Activity on Discharge: As tolerated Visit Report Forms: Patient Portal Discharge page Care Plan Goals: Read Below Health Concerns: Read below Plan of Treatment: You were admitted to the hospital for treatment of infection. CT scan of the abdomen was consistent with inflammation of your colon. Your treated with IV antibiotics with good response. You were able to tolerate diet well. Continue Flagyl Levaquin for 4 more days Advance your diet slowly over the next week To follow-up with PCP within 2 weeks
--- NOTE | 2020-03-21 12:28 | W.MHC.F2F ---
Service Date Service Date: 03/21/20 Reasons for Services overseeing care: Scarlett Tobisa MD Homebound: Leaving the home is medically contraindicated at this time without the asist of a device and/or another person due th the listed conditions above and below. Certification: Based on the above findings, I certify that this patient is confined to the home and needs intermittent retirement care, physical therapy and/or speech therapy, or continues to need occupational therapy. The patient is under my care, and I have initiated the establishment of the plan of care. The patient will be followed by a physician who will periodically review the plan of care.
[2020-03-21 16:00] VITALS: BP 145/70; PULSE 68; RESP 18; TEMP 36.3; O2SAT 94
[2020-03-21] MEDS: levoFLOXacin/D5W 500 MG/100 ML PIGGYBACK 100 MG IV (16:58)
[2020-03-21] MEDS: 0.9 % Sodium Chloride Flush 3 ML SYRINGE 2 ML IVFLUSH (17:02)
== END 2020-03-21 19:07 | disposition home or self-care (01) | DRG 720 ==
LOC: HO.ED 17:28 → HO.S3 19:41
PROVIDERS: Emergency Medicine; Internal Medicine; Physician Assistant Medical; Admitting Provider Hospitalist; Emergency Provider Emergency Medicine; Visit Provider Student in an Organized Health Care Education/Training Program
DX: A41.9 Sepsis, unspecified organism (principal); F17.210 Nicotine dependence, cigarettes, uncomplicated; K80.20 Calculus of gallbladder without cholecystitis without obstruction; K52.9 Noninfective gastroenteritis and colitis, unspecified; Z71.6 Tobacco abuse counseling; Z88.0 Allergy status to penicillin; Z79.899 Other long term (current) drug therapy
CPT/HCPCS: 36415; 74176; 80048; 80076; 83605; 83690; 85025; 85027; 87040; 87635; 96361; 96374; 96375; 99284; 99291; J1956; J2270